=== PATIENT | female | born 2000 | race Caucasian/White ===

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

== ENCOUNTER 2022-01-01 18:16 | Emergency (ER) | payer OTHER ==
[~2022-01-01] VITALS: Ht 157.5 cm; Wt 46.3 kg
[~2022-01-01 18:16] MED LIST changes: +CITALOPRAM HBR10 MG PO; +NORTRIPTYLINE H25 MG PO; +ZOFRAN4 MG PO
== END 2022-01-01 22:20 | disposition home or self-care (01) ==
LOC: ED 18:16
DX: R10.12 Left upper quadrant pain (principal); Z79.899 Other long term (current) drug therapy
CPT/HCPCS: 36415; 80053; 81001; 83690; 84703; 85025; 96374; 99284-25; A9270; J2405

== ENCOUNTER 2022-02-05 15:21 | Emergency (ER) | payer OTHER ==
[~2022-02-05] VITALS: Ht 157.5 cm; Wt 46.4 kg
[2022-02-05] MEDS ORDERED: ONDANSETRON ODT8 MG PO (18:05)
--- NOTE | 2022-02-06 10:57 | EKG ---
[facility] [address] [facility] [place] [address] Signed Sinus rhythm with sinus arrhythmia with short AL Cannot rule out Anterior infarct , age undetermined Abnormal ECG No previous ECGs available Confirmed by CYRUS PELAEZ MD ([id number]) on 02/06/2022 10:57:03 AM Electronically Signed By: CYRUS PELAEZ MD 02/06/22 1057 PATIENT NAME: SOLOMON VERAS Electrocardiogram DATE OF : [birth year] PHYSICIAN: CYRUS PELAEZ MD REPORT #: [id number] REPORT IS CONFIDENTIAL AND NOT TO BE RELEASED WITHOUT AUTHORIZATION
== END 2022-02-05 18:22 | disposition home or self-care (01) ==
LOC: ED 15:21
DX: B34.9 Viral infection, unspecified (principal); R00.2 Palpitations
CPT/HCPCS: 36415; 84703; 85025; 93005; 93010; 99285-25; A9270